=== PATIENT | female | born 1955 | race Native Hawaiian/Other Pacific Islander ===

== ENCOUNTER 2016-08-29 09:32 | Outpatient (CLI) | payer OTHER, BC | END 2016-08-29 09:36 | disposition short-term general hospital (02) | LOC: AMB 09:32 | DX: M54.2 Cervicalgia (principal); V49.88XA Car occupant (driver) (passenger) injured in other specified transport accidents, initial encounter; Y92.488 Other paved roadways as the place of occurrence of the external cause | CPT/HCPCS: A0425; A0429 ==

== ENCOUNTER 2016-08-29 09:42 | Emergency (ER) | payer OTHER, BC ==
[~2016-08-29] VITALS: Ht 157.5 cm; Wt 83.0 kg
[2016-08-29 12:07] VITALS: BP 125/72; TEMP 98.4
== END 2016-08-29 12:08 | disposition home or self-care (01) ==
LOC: ED 09:42
DX: S16.1XXA Strain of muscle, fascia and tendon at neck level, initial encounter (principal); V43.62XA Car passenger injured in collision with other type car in traffic accident, initial encounter
CPT/HCPCS: 36415; 99283